=== PATIENT | male | born 1950 | race Caucasian/White ===

== ENCOUNTER → 2016-08-20 | Day surgery (SDC) | payer MEDICARE ==
[~2016-08-20] VITALS: Ht 172.7 cm; Wt 74.2 kg
[~2016-08-20] MED LIST: BACITRACIN TOP OINT 15 GM TUBE ONE; BUPIVACAINE HCL PF 0.5% 30 ML VIAL ONE; CALC-131 PO; DO NOT ADM ANY ANTICOAGULANT DRUGS XX PRN; FAMOTIDINE 20 MG/2 ML VIAL ONE; GENTAMICIN SULFATE 80 MG/2 ML VIAL ONE; HYDR-3533 PO; HYDROmorphone HCL PF 1 MG/ML VIAL IV PRN; INSULIN HUMAN REGULAR 1,000 UNITS/10 ML VIAL SQ PRN; LACTATED RINGER'S 1000 ML INJ 500 ML IV SCH; LACTATED RINGER'S 1000 ML IV SCH; LIDOCAINE HCL 2% 50 ML VIAL ONE; METOPROLOL TARTRATE 25 MG TAB PO PRN; MIDAZOLAM HCL 2 MG/2 ML VIAL ONE; MOTR200T4 PO; MULT1TAB85 PO; MUPIROCIN 2% OINT 22 GM TUBE ONE; OMEG100010 PO; ONDANSETRON HCL 4 MG/2 ML VIAL IV PUSH ONE; ONDANSETRON HCL 4 MG/2 ML VIAL IV PUSH PRN; PROPOFOL 200 MG/20 ML AMP IV ONE; ROCE1INJ3 IV; SACC1CAP3 PO; SODIUM CHLORID 0.9% 500 ML IV SCH; VANCOMYCIN 500 MG VIAL ONE; VITA10003 PO; VITA10007 PO; cefTRIAXone 1,000 MG/NS 100 ML IV ONE
[2016-08-20 10:43] VITALS: BP 143/82; PULSE 58; RESP 18; TEMP 98.5; O2SAT 99
[2016-08-20 14:50] VITALS: BP 150/91; PULSE 54; RESP 18; TEMP 97.8; O2SAT 99
--- NOTE | 2016-08-20 16:59 | EKG ---
Date Performed: 08/20/2016 Time Performed: 10:40:50 PTAGE: 65 years EKG: Sinus rhythm WITH SINUS ARRHYTHMIA Compared to prior tracing no significant change NORMAL ECG PREVIOUS TRACING : 02/18/1994 14.10 DOCTOR: Brianna Salinas Interpretating Date/Time 08/20/2016 16:56:08
--- NOTE | 2016-09-03 11:30 | MP ---
cc: LALY CONTE MD,LATOYA Moore MD DATE OF PROCEDURE 08/20/2016 PREOPERATIVE DIAGNOSIS Infected right middle finger, concern for osteomyelitis. PROCEDURE 1. Incision and drainage abscess right middle finger. 2. Bone biopsy right middle finger. SURGEON Laly Conte MD ANESTHESIA General and local TOURNIQUET TIME 48 minutes at 250 mmHg SPECIMEN Multiple cultures and tissue for pathology INDICATION FOR PROCEDURE Wood Treviño is a 65 year-old right-hand dominant male who states that he has had approximately one year of swelling over the right middle finger after sustaining an injury to the finger while laying grout and he has had intermittent infections. He was seen approximately two months ago. ESR was within normal limits. CRP was 0.6. MRI showed significant edema consistent with osteomyelitis. The patient has been on a PICC line with Rocephin with no change in his MRI. He has been off antibiotics for one week per Dr. Reinoso. Treatment options were discussed at length with the patient and his including continued observation, continued antibiotics versus surgical intervention at this time and he elected to proceed with surgical intervention. The risks were explained to include, but not limited to sepsis, wound complications, infections, stiffness, pain, persistent infection, amputation of the finger and he elected to proceed. DESCRIPTION OF PROCEDURE The patient was identified in the preoperative holding area. The correct extremity was marked. The patient was taken to the operating room where anesthesia was induced. The right upper extremity was prepped and draped in a normal sterile fashion. A longitudinal incision was made over the dorsum of the middle phalanx, as well as across the distal interphalangeal joint. Upon making the incision, there was no obvious purulence. There was significant inflammatory tissue which was sent for multiple cultures, as well as pathology. These included superficial culture, periosteum, as well as a bone biopsy. The wound was irrigated with three liters of antibiotic saline. Care was taken to protect the extensor tendon, as well as the germinal matrix. The wound was closed loosely with chromic. The patient was placed into a soft dressing and awoken from anesthesia without any complications. We will follow the cultures and pathology and update the patient, as well as Dr. Reinoso. He may restart the Rocephin again per Dr. Reinoso. I will see him in one week. MD FIDEL King /1:36 PM /11:28 AM T[facility]I
== END | disposition home or self-care (01) ==
LOC: HSDC 09:50
PROVIDERS: ATTEND Orthopaedic Surgery
DX: M86.9 Osteomyelitis, unspecified (principal); L03.011 Cellulitis of right finger; Z01.810 Encounter for preprocedural cardiovascular examination
CPT/HCPCS: 01830; 20240; 87015; 87070; 87102; 87116; 87176; 87205; 87206; 88305; 88307; 88311; 93005; J0696; J1642; J2250; J2405; J3010; J7120; J1580; J3370